=== PATIENT | male | born 1960 | race Caucasian/White ===

== ENCOUNTER 2021-05-30 18:51 | Emergency (ER) | payer MEDICARE, SELFPAY ==
[2021-05-30 18:52] VITALS: BP 144/113; PULSE 120; RESP 20; TEMP 37.2; O2SAT 94; BMI 33.0
--- NOTE | 2021-05-30 20:01 | EKG12_ITS ---
Test Reason : SOB Blood Pressure : / mmHG Vent. Rate : 102 BPM Atrial Rate : 102 BPM P-R Int : 154 ms QRS Dur : 094 ms QT Int : 348 ms P-R-T Axes : 038 -44 027 degrees QTc Int : 453 ms Sinus tachycardia Left axis deviation Poor R wave progression Abnormal ECG Confirmed by NATALIIA WALDEN, TRACEY ([id number]), fashion editor RENU RIVER ([id number]) on 06/04/2021 10:20:02 AM Referred By: CHRISTOS Confirmed By:TRACEY WILLIAM MD
--- NOTE | 2021-05-30 20:50 | RAD_ITS ---
STUDY: X-RAY CHEST REASON FOR EXAM: Male, 61 years old. cough TECHNIQUE: Single AP portable view of the chest. COMPARISON: 02/05/2017. FINDINGS: There is hyperinflation of the lungs consistent with chronic obstructive lung disease (COPD). Question of a faint 3.7 cm pulmonary density in the left upper lobe. This needs further evaluation with CT scan. Otherwise lungs clear. No pleural effusions. There is no demonstrated pleural abnormality. Normal size heart. Normal mediastinum and darrell. There is prominence of the pulmonary hilar arteries without peripheral pulmonary vascular congestion, suggesting pulmonary hypertension. There is atherosclerotic tortuosity of the aortic arch and descending thoracic aorta. Normal visualized thoracic spine. Normal visualized ribs, clavicles, and shoulders. There is no demonstrated abnormality of the visualized soft tissue structures of the upper abdomen. RAD/Chest 1 View (Portable) IMPRESSION: (COPD). Question of a faint 3.7 cm pulmonary density in the left upper lobe. This needs further evaluation with CT scan. Electronically Signed: Wiley Spear MD at 21:35 EDT , Service support ,
--- NOTE | 2021-05-30 20:57 | ED.VIS.DYS ---
HPI History of Present Illness Chief Complaint: Shortness of Breath Informant: patient Onset/Context/Timing Onset: Days Narrative Narrative: Patient is a 61-year-old male presenting with worsening shortness of breath and viral symptoms. Patient's been diagnosed with Covid he. He started having symptoms on Friday with a headache, 10 days ago. 5 days ago he developed fever, body aches and cough. He checked his oxygen on his home pulse oximeter and it was reading between 87 and 88. He notes he has been more short of breath. This is why he came into the emergency room today. [facility] Medical History (Updated 05/31/21 @ 00:[address] Delores Griggs, DO) Arthritis Difficulty balancing Knee pain Shoulder pain Home Medications NK 05/30/21 [History Last Taken Unknown] Allergy/AdvReac Type Severity Reaction Status Date / Time No Known Allergies Allergy Verified 05/30/21 18:54 Family History Father Cancer Heart disease Surgical History History of appendectomy Social History (Updated 11/07/19 @ 10:23 by Muriel HOWARD, PA) Smoking Status: Never smoker ROS ROS ED Constitutional Constitutional ED: Reports chills and fever(s) Eyes Eyes: Denies blurry vision or change in vision ENT ENT ED: Reports rhinorrhea and sore throat; Denies ear pain Cardiovascular Cardiovascular: Reports chest pain Respiratory/Chest Respiratory/Chest: Reports cough and dyspnea Gastrointestinal Gastrointestinal: Reports nausea; Denies abdominal pain, diarrhea or vomiting Genitourinary Genitourinary ED: Denies dysuria or hematuria Musculoskeletal Musculoskeletal: Reports arthralgias and myalgias Integumentary Denies rash Neurologic Neurologic: Reports headache(s) and weakness Psychiatric Psychiatric: Denies depression EXAM Physical Exam Const Vital Signs: 05/30/21 18:52 05/30/21 19:41 05/30/21 21:00 Temperature 98.9 F Temperature Source Temporal Pulse Rate 120 H 110 H Respiratory Rate 20 H 20 H Respiratory Effort Normal Respiratory Depth Normal Respiratory Pattern Normal Blood Pressure 144/113 H 138/85 H Blood Pressure Mean 123 102 Pulse Ox 94 93 Oxygen Delivery Method Room Air Room Air 05/30/21 23:00 05/31/21 00:31 Temperature Temperature Source Pulse Rate 101 H 98 Respiratory Rate 20 H 16 Respiratory Effort Respiratory Depth Respiratory Pattern Blood Pressure 129/94 H Blood Pressure Mean 105 Pulse Ox 92 93 Oxygen Delivery Method Room Air Positive well nourished and well developed General Appearance ED: well developed HEENT Reports TM's clear and moist mucous membranes atraumatic Tympanic Membrane ED: Yes TM's clear Eyes PERRL and EOMs intact bilaterally Neck no lymphadenopathy, supple and no meningeal signs Resp Auscultation: rhonchi right upper and right lower and diminished lung sounds bilateral lower Cardio regular rhythm and no murmurs Rate: tachycardic GI non-tender and non-distended Auscultation: normoactive bowel sounds Palpation: soft Back/Spine normal to inspection Extremity normal to inspection General Extremety ED: Negative for edema or tenderness General Extremity: Negative for edema Neuro oriented x3 and CN's II-XII intact bilaterally Sensorium / Orientation: alert Motor Exam: general weakness Psych mental status grossly normal Thought Process: normal thought process Skin no wounds Rashes: no rashes MDM MDM MDM Narrative Medical decision making narrative: Patient evaluated for progression of symptoms with diagnosis of COVID-19 infection. He appears ill but nontoxic. While he had low O2 sat readings at home, he is not hypoxic in the ED at rest or with ambulation. Workup is largely normal. D dimer is normal for age adjusted. CXR does show faint density of left upper lobe. I suspect these are changes consistent with COVID and patient is instructed to follow up with PCP when recovered for repeat and possible CT at that time. Patient is counseled that as he is not hypoxic he does not meet admission criteria and as he is less than 65 with no comorbidities and BMI less than 35 he dose not meet criteria for monoclonal antibody infusion. He is encouraged to continue to monitor O2 sat at home and he might need to return to the ED should his symptoms worsen. Other lentz continue alternating Tylenol and Ibuprofen and encouraging fluids. Lab Data Attestation: I reviewed the patient's lab results. Labs: Laboratory Results - last 24 hr 05/30/21 05/30/21 05/30/21 20:22 20:22 20:22 WBC 5.1 RBC 5.42 Hgb 16.4 Hct 49.9 MCV 92.1 MCH 30.3 MCHC 32.9 RDW Std Deviation 44.6 H RDW Coeff of Nivia 13.2 Plt Count 217 MPV 9.3 Immature Gran % (Auto) 0.400 Neut % (Auto) 65.4 Lymph % (Auto) 20.9 Hernando % (Auto) 12.7 H Eos % (Auto) 0.4 Baso % (Auto) 0.2 Absolute Neuts (auto) 3.4 Absolute Lymphs (auto) 1.07 Nucleated RBC % 0 D-Dimer Quant (PE/DVT) 0.54 H* Sodium 138 Potassium 3.8 Chloride 105 Carbon Dioxide 30.0 Anion Gap 3 L BUN 17 Creatinine 1.23 Estim Creat Clear Calc 71.27 Est GFR (MDRD) Af Amer 77 Est GFR (MDRD) Non-Af 64 BUN/Creatinine Ratio 13.8 Glucose 99 Lactic Acid Calcium 8.7 Total Bilirubin 0.40 AST 26 ALT 41 Alkaline Phosphatase 100 Lactate Dehydrogenase 189 Total Creatine Kinase 126 Total Protein 8.2 Albumin 3.7 Globulin 4.5 H Albumin/Globulin Ratio 0.8 L Procalcitonin 05/30/21 05/30/21 20:22 20:22 WBC RBC Hgb Hct MCV MCH MCHC RDW Std Deviation RDW Coeff of Nivia Plt Count MPV Immature Gran % (Auto) Neut % (Auto) Lymph % (Auto) Hernando % (Auto) Eos % (Auto) Baso % (Auto) Absolute Neuts (auto) Absolute Lymphs (auto) Nucleated RBC % D-Dimer Quant (PE/DVT) Sodium Potassium Chloride Carbon Dioxide Anion Gap BUN Creatinine Estim Creat Clear Calc Est GFR (MDRD) Af Amer Est GFR (MDRD) Non-Af BUN/Creatinine Ratio Glucose Lactic Acid 0.9 Calcium Total Bilirubin AST ALT Alkaline Phosphatase Lactate Dehydrogenase Total Creatine Kinase Total Protein Albumin Globulin Albumin/Globulin Ratio Procalcitonin 0.05 Radiography Chest X-Ray - ED: 1 View, Read by ED Physician, Read by Radiologist and Left Infiltrate Diagnostic Testing: Radiology Impression Chest X-Ray 05/30/21 20:50 IMPRESSION: (COPD). Question of a faint 3.7 cm pulmonary density in the left upper lobe. This needs further evaluation with CT scan. Electronically Signed: Wiley Spear MD at 21:35 EDT , Service support , Rhythm Strip Rhythm Strip: Sinus Tach Rate: 102 Ectopy: None EKG Initial EKG: Attestation: I personally reviewed and interpreted this EKG as follows: Interpretation: Sinus Tachycardia Comments: Sinus tachycardia at a rate of 102 Left axis deviation Normal intervals Normal ST segments Discharge Plan Triage Chief Complaint: Shortness of Breath ED Provider: Delores Griggs Dx/Rx/DC Orders Clinical Impression: COVID-19, Lung abnormality Instructions: Coronavirus Disease 2019 (COVID-19): Caring for Yourself or Others Prescriptions: No Action NK RF: 0 Primary Care Provider: Shawn Clay Referrals: Shawn Clay MD [Primary Care Provider] - Activity Restrictions/Additional Instructions: Return to the emergency room if your oxygen is staying below 90. Please return if you have worsening symptoms. At this time you are not a candidate for monoclonal antibody therapy. Please follow-up with your primary care doctor when you recover from this as she did have an abnormal fine on your chest x-ray that needs to be followed up with a nonemergent CT. Disposition Disposition: Home, Self Care Discharge Date/Time: 05/31/21 00:34
[2021-05-30 21:00] VITALS: BP 138/85; PULSE 110; RESP 20; O2SAT 93
[2021-05-30 21:25] LABS: ALB/GLOB Ratio 0.8 RATIO (0.9-2.4); AST(SGOT) 26 U/L (15-37); Alanine Aminotransfer ALT/SGPT 41 U/L (16-61); Albumin, Serum 3.7 g/dL (3.2-5.0); Alkaline Phosphatase 100 U/L (45-117); Anion Gap 3 (5-15); BUN 17 mg/dL (7-18); BUN/Creat Ratio 13.8 RATIO (10-20); CPK Total, Creatine Kinase 126 U/L (39-308); Calcium,Total 8.7 mg/dL (8.5-10.1); Chloride 105 mmol/L (98-107); Creatinine, Serum 1.23 mg/dL (0.70-1.30); EST Glomerular Filtration Rate 64 mL/min (>60); Est Glom Filt Rate - Afr Amer 77 mL/min (>60); Estimated Creatinine Clearance 71.27 ml/min; Globulin 4.5 g/dL (2.2-4.2); Glucose 99 mg/dL (74-106); LDH 189 U/L (87-241); Potassium 3.8 mmol/L (3.5-5.1); Protein, Total 8.2 g/dL (6.4-8.2); Sodium Level 138 mmol/L (136-145)
[2021-05-30 21:30] LABS: Lactic Acid 0.9 mmol/L (0.4-1.9)
[2021-05-30 21:41] LABS: Absolute Lymphocyte Count 1.07 X10^3/uL (0.83-4.51); Absolute Neutrophil Count 3.4 X10^3/uL (2.0-7.7); Basophil# 0.01 X10^3/uL; Basophil% 0.2 % (0-1); Eosinophil# 0.02 X10^3/uL; Eosinophils% 0.4 % (0-5); Hematocrit 49.9 % (40-54); Hemoglobin 16.4 g/dL (13.0-16.5); Lymphocyte # 1.07 X10^3/ul (0.83-4.51); Lymphocyte % 20.9 % (19-41); Mean Corp Hgb Conc 32.9 g/dL (32-36); Mean Corpuscular Hgb 30.3 pg (27.0-32.0); Mean Corpuscular Volume 92.1 fL (80-94); Mean Platelet Vol. 9.3 fl (6.2-12.0); Monocyte# 0.65 X10^3/uL; Monocyte% 12.7 % (0-10); NRBC Flagged by Analyzer 0 % (0-5); Neutrophil # 3.36 X10^3/uL (2.7-7.7); Neutrophil % 65.4 % (47-70); Platelet Count 217 K/mm3 (150-450); RBC Distribution Width CV 13.2 % (11.6-14.6); RBC Distribution Width SD 44.6 fl (35.1-43.9); Red Blood Count 5.42 M/mm3 (4.6-6.2); White Blood Count 5.1 K/mm3 (4.4-11.0)
[2021-05-30 21:49] LABS: Procalcitonin 0.05 ng/mL (0.00-0.09)
[2021-05-30 22:18] LABS: D-Dimer Quantitative (DVT/PE) 0.54 FEU/ug/m (0.27-0.49)
[2021-05-30 23:00] VITALS: BP 129/94; PULSE 101; RESP 20; O2SAT 92
[2021-05-31 00:31] VITALS: PULSE 98; RESP 16; O2SAT 93
== END 2021-05-31 00:34 | disposition home or self-care (01) ==
PROVIDERS: Emergency Provider Emergency Medicine; PCP Family Medicine
DX: U07.1 COVID-19 (principal); R91.8 Other nonspecific abnormal finding of lung field; M19.90 Unspecified osteoarthritis, unspecified site
CPT/HCPCS: 36415; 71045; 80053; 82550; 83605; 83615; 84145; 85025; 85379; 87040; 87426; 93005; 99284; A4216

== ENCOUNTER → 2021-05-30 | Outpatient (CLI) | payer MEDICARE, SELFPAY | END | disposition home or self-care (01) | PROVIDERS: PCP Family Medicine; Visit Provider Family Medicine | DX: U07.1 COVID-19 (principal) | CPT/HCPCS: 87635; U0005; U0003 ==